=== PATIENT | female | born 1980 | race Caucasian/White ===

== ENCOUNTER 2017-02-28 21:58 | Emergency (ER) | payer MEDICAID ==
[~2017-02-28] VITALS: Ht 165.1 cm; Wt 86.5 kg
[~2017-02-28 21:58] MED LIST: ACET-2047 PO; IBUP200C PO
[2017-02-28 22:29] VITALS: Ht 165.1 cm; Wt 86.5 kg
[2017-03-01] MEDS ORDERED: ONDANSETRON 4 MG INJ IV STA (00:19)
[2017-03-01] MEDS ORDERED: KETOROLAC 30 MG INJ IV STA (00:19)
[2017-03-01] MEDS ORDERED: morphine 4 MG/ML VIAL IV STA (00:19)
[2017-03-01] MEDS ORDERED: AMOX500C2 PO (00:29)
[2017-03-01] MEDS ORDERED: CLINDAMYCIN 600 MG/D5W (PMX) 50 ML IVPB SCH (00:30)
--- NOTE | 2017-03-01 00:32 | ERD ---
ER Documentation Chief Complaint Date/Time DATE: 03/01/17 TIME: 00:27 Chief Complaint Pt c/o swelling and pain after dental procedure on Wednesday HPI 36-year-old female presents here in emergency department for complaints of swelling in the right side of the face after dental procedure done yesterday. Patient had a dental procedure done on the right upper molar yesterday, noticed to have swelling on the right side of the face, complaining of dental pain, throbbing pain, 8/10 scale, is worse upon touching the area. Patient did not take any dictations to help with symptoms.Patient took ibuprofen at home and amoxicillin with only mild relief. ROS All systems reviewed and are negative except as per history of present illness. Medications Home Meds Active Scripts Acetaminophen* (Acetaminophen*) 650 Mg Tablet, 650 MG PO Q6H Y for PAIN AND OR ELEVATED TEMP, #20 TAB Prov:ABHIASHLEIGHARCELIAOSVALDO IVAN 09/16/15 Reported Medications Amoxicillin* (Amoxicillin*) Unknown Strength Cap, PO TID for 7 Days, CAP 03/01/17 Ibuprofen* (Ibuprofen*) 200 Mg Capsule, 400 MG PO Q6 01/05/11 Allergies Allergies: Coded Allergies: No Known Drug Allergy (Verified Allergy, Unknown, 01/05/11) PMhx/Soc Medical and Surgical Hx: pt denies Medical Hx, pt denies Surgical Hx History of Surgery: No Anesthesia Reaction: No Hx Neurological Disorder: No Hx Respiratory Disorders: No Hx Cardiac Disorders: No Hx Psychiatric Problems: No Hx Miscellaneous Medical Probl: No Hx Alcohol Use: No Hx Substance Use: No Hx Tobacco Use: No Smoking Status: Never smoker FmHx Family History: No coronary disease, No diabetes, No other Physical Exam Vitals Vital Signs Date Time Temp Pulse Resp B/P Pulse Ox O2 Delivery O2 Flow Rate FiO2 02/28/17 22:29 98.1 99 20 140/90 96 Physical Exam GENERAL: The patient is well developed and appropriate for usual state of health, in no apparent distress. HEENT: Atraumatic. Ears: Normal tympanic membrane, no erythema or bulging. No ear canal swelling. No ear discharge. Nose: normal nasal turbinates, no erythema or swelling. Normal nasal discharge. Throat: oropharynx clear. No tonsillar swelling or tonsillar exudates. No lymphadenopathy.Noted swelling on the right side of the face, tenderness surrounding the right upper gum area of the molars, no fluctuance noted. No discharge noted. CHEST: Clear to auscultation bilaterally. There are no rales, wheezes or rhonchi. HEART: Regular rate and rhythm. No murmurs, clicks, rubs or gallops. No S3 or S4. ABDOMEN: Soft, nontender and nondistended. Good bowel sounds. No rebound or guarding. No gross peritonitis. No gross organomegaly or masses. No Magallanes sign or McBurney point tenderness. BACK: No midline or flank tenderness. EXTREMITIES: Equal pulses bilaterally. There is no peripheral clubbing, cyanosis or edema. No focal swelling or erythema. Full range of motion. Grossly neurovascularly intact. NEURO: Alert and oriented. Cranial nerves 2-12 intact. Motor strength in all 4 extremities with 5/5 strength. Sensation grossly intact. Normal speech and gait. SKIN: There is no apparent rash or petechia. The skin is warm and dry. HEMATOLOGIC AND LYMPHATIC: There is no evidence of excessive bruising or lymphedema. No gross cervical, axillary, or inguinal lymphadenopathy. Results 24 hrs Current Medications Medications (Trade) Dose Ordered Sig/Tyler Route PRN Reason Start Time Stop Time Status Last Admin Dose Admin Ketorolac Tromethamine (Toradol) 30 mg ONCE STAT IV 03/01/17 00:19 03/01/17 00:22 DC Morphine Sulfate 4 mg 4 mg ONCE STAT IV 03/01/17 00:19 03/01/17 00:22 DC Clindamycin HCl/ Dextrose (Cleocin 600 Mg/ D5W (Pmx)) 50 ml @ 50 mls/hr ONCE IVPB 03/01/17 00:30 03/01/17 01:29 Ondansetron HCl (Zofran Inj) 4 mg ONCE STAT IV 03/01/17 00:19 03/01/17 00:23 DC Patient was given medication for pain here in emergency department, after treatment, patient verbalized feeling much better. Patient's pain is improved.IV clindamycin was given here in emergency department for treatment for possible dental infection. Procedures/MDM Medical decision making: Patient's swelling on the right side of the face and right upper molar pain affect is consistent with a dental infection. Patient was given IV clindamycin here in emergency department pain medications, no symptoms of any obvious dental abscess at this time. No symptoms of any cellulitis. Patient does not have any fever. Patient a prescription for limited stable. Patient was given for scheduled for clindamycin, was advised to stop amoxicillin, was given [place] for pain ibuprofen for mild to moderate pain, patient was advised to return to emergency department for any worsening symptoms.She was advised to follow with dental specialist within 1-2 days. Departure Diagnosis: Primary Impression: Tooth disease Condition: Stable Patient Instructions: Dental Pain MARTÍNEZ HORTON NP Mar 01, 2017 00:32
[2017-03-01] MEDS ORDERED: HYDR-906 PO (00:33)
[2017-03-01] MEDS ORDERED: CLIN-73 PO (00:33)
[2017-03-01] MEDS ORDERED: IBUP-1542 PO (00:33)
[2017-03-01 02:25] VITALS: PULSE 78; RESP 20; TEMP 98.1
== END 2017-03-01 02:22 | disposition home or self-care (01) ==
LOC: FTE 21:58
DX: K08.9 Disorder of teeth and supporting structures, unspecified (principal)
CPT/HCPCS: 96374; 96375; J1885; J2270; J2405; Z7502; Z7610